=== PATIENT | female | born 1950 | race Caucasian/White ===

== ENCOUNTER 2019-03-01 18:47 | Observation (INO) | payer OTHER ==
[2019-03-01 19:09] VITALS: BMI 25.8
--- NOTE | 2019-03-01 19:14 | PDOC ---
Rapid Medical Evaluation Time Seen by Provider: 03/01/19 19:07 Medical Evaluation: Allergies Allergy/AdvReac Type Severity Reaction Status Date / Time clams Allergy Verified 03/01/19 19:09 Vital Signs Temp Pulse Resp BP Pulse Ox 98.0 F 100 H 18 200/101 H 98 03/01/19 19:06 03/01/19 19:06 03/01/19 19:06 03/01/19 19:06 03/01/19 19:06 03/01/19 19:09 Pt c/o: left back pain radiating to LLQ x 1 week, left chest pain x 10 minutes ( sharp ), no sob, fever, hx htn, (took meds last night) Pt on brief exam: left trap tenderness, no chest tenderness, lcta, elevated BP, pulse 100 Pt ordered for: labs, cxr, ekg, urine Pt to proceed to the ED Discharge Disposition - Diagnosis Left sided abdominal pain - Referrals - Patient Instructions - Post Discharge Activity
[2019-03-01 19:52] LABS: BASO % 0.8 % (0-2.0); EOS % 2.6 % (0-4.5); HEMATOCRIT 37.7 % (32.4-45.2); HEMOGLOBIN 12.8 GM/dL (10.7-15.3); LYMPH % 44.2 % (8-40); MCH 30.3 pg (25.7-33.7); MEAN CELL VOLUME 89.1 fl (80-96); MEAN PLT VOLUME 8.2 fl (7.5-11.1); MONO % 6.6 % (3.8-10.2); NEUT % 45.8 % (42.8-82.8); PLATELET COUNT 252 K/MM3 (134-434); RBC 4.23 M/mm3 (3.60-5.2); RDW 12.9 % (11.6-15.6); WHITE BLOOD COUNT 7.1 K/mm3 (4.0-10.0)
[2019-03-01 20:08] LABS: ALBUMIN 4.2 g/dl (3.4-5.0); ALK PHOS 116 U/L (45-117); ANION GAP 7 MMOL/L (8-16); BILIRUBIN,TOTAL 0.4 mg/dL (0.2-1); BLOOD UREA NITROGEN 22 mg/dL (7-18); CALCIUM 8.7 mg/dL (8.5-10.1); CHLORIDE 106 mmol/L (98-107); CO2 29 mmol/L (21-32); CREATININE 1.2 mg/dL (0.55-1.3); GLUCOSE,RANDOM 131 mg/dL (74-106); POTASSIUM 4.4 mmol/L (3.5-5.1); SGOT/AST 22 U/L (15-37); SGPT/ALT 21 U/L (13-61); SODIUM 142 mmol/L (136-145); TOT PROT 7.8 g/dl (6.4-8.2)
--- NOTE | 2019-03-01 20:21 | PDOC ---
History of Present Illness - General Chief Complaint: Chest Pain Stated Complaint: BACK PAIN, CHEST PAIN Time Seen by Provider: 03/01/19 19:07 - History of Present Illness Initial Comments: 03/01/19 21:59 66 year old female, with a significant past medical history of asthma and HTN, who presents to the emergency department with lower back pain radiating to the lower abdomen for the past week. Denies fever, dysuria, nausea, vomiting. Last checked her bp and saw her doctor 3 weeks ago where he bp was normal. Pain is relief when she slouches over. Past History - Past Medical History Allergies/Adverse Reactions: Allergies Allergy/AdvReac Type Severity Reaction Status Date / Time clams Allergy Verified 03/01/19 19:09 Home Medications: Ambulatory Orders Losartan Potassium [Cozaar] 100 mg PO DAILY 10/29/16 Asthma: Yes COPD: No HTN: Yes - Surgical History Abdominal Surgery: Yes (TUBAL LIGATION) - Suicide/Smoking/Psychosocial Hx Smoking History: Never smoked Hx Alcohol Use: No Drug/Substance Use Hx: No Review of Systems - Review of Systems Able to Perform ROS?: Yes Is the patient limited Slovak proficient: No Constitutional: No: Symptoms Reported HEENTM: No: Symptoms Reported Respiratory: No: Symptoms reported Cardiac (ROS): No: Symptoms Reported ABD/GI: Yes: See HPI : No: See HPI Musculoskeletal: No: Symptoms Reported Integumentary: No: Symptoms Reported Neurological: No: Symptoms reported All Other Systems: Reviewed and Negative *Physical Exam - Vital Signs Last Vital Signs Temp Pulse Resp BP Pulse Ox 98.0 F 100 H 18 200/101 H 98 03/01/19 19:06 03/01/19 19:06 03/01/19 19:06 03/01/19 19:06 03/01/19 19:06 - Physical Exam General Appearance: Yes: Nourished, Appropriately Dressed. No: Apparent Distress HEENT: positive: EOMI, Normal ENT Inspection Respiratory/Chest: positive: Lungs Clear, Normal Breath Sounds. negative: Chest Tender, Respiratory Distress Cardiovascular: positive: Regular Rhythm, S1, S2, Tachycardia Gastrointestinal/Abdominal: positive: Normal Bowel Sounds, Soft. negative: Tender Musculoskeletal: positive: Normal Inspection. negative: CVA Tenderness, Vertebral Tenderness Extremity: positive: Other (negative leg raise) Integumentary: positive: Normal Color, Dry, Warm Neurologic: positive: Fully Oriented, Alert, Normal Mood/Affect Heart Score/ECG Review - History History: Moderately suspicious - Electrocardiogram EKG: Normal - Age Age: >/= 65 - Risk Factors Risk Factors Heart Score: Yes Hx Hypertension, Yes Positive family hx of cardiac disease Based on the list above the patient has:: 1-2 risk factors - Troponin Troponin: </= normal limit - Score Heart Score - Total: 4 ED Treatment Course - LABORATORY CBC & Chemistry Diagram: 03/01/19 19:16 03/01/19 19:16 - ADDITIONAL ORDERS Additional order review: Laboratory Results 03/01/19 19:16 Sodium 142 Potassium 4.4 Chloride 106 Carbon Dioxide 29 Anion Gap 7 L BUN 22 H Creatinine 1.2 Creat Clearance w eGFR 44.54 Random Glucose 131 H Calcium 8.7 Total Bilirubin 0.4 AST 22 ALT 21 Alkaline Phosphatase 116 Creatine Kinase 232 H Troponin I < 0.02 Total Protein 7.8 Albumin 4.2 Medical Decision Making - Medical Decision Making 03/01/19 22:25 Dissection vs kidney stones vs acs vs msk pain Will r/o aortic etiology with CTA, check basic labs, EKG, UA for uti/renal colic although unlikely due to location of pain. UA negative for blood or infection. Patient has a heart score of 4, will have to tele obs at least and work on lowering bp with home med first. Patient admitted to tele obs 03/01/19 23:54 *DC/Admit/Observation/Transfer Diagnosis at time of Disposition: Left sided abdominal pain - Discharge Dispostion Decision to Admit order: Yes - Referrals - Patient Instructions - Post Discharge Activity
[2019-03-01] MEDS ORDERED: LOSARTAN POTASSIUM 50 MG TABLET (FP) PO ONE (21:10)
--- NOTE | 2019-03-01 21:21 | PDOC ---
Attending Attestation - HPI HPI: 03/01/19 22:14 The patient is a 68 year old female, with a significant PMH of HTN, who presents to the emergency department for evaluation of one week of worsening low back pain that radiates to the periumbilical region of the abdomen. Patient also notes 2 episodes of a pinching feeling below left breast, one earlier today and another upon speaking to the patient. Patient also reports tingling in bilateral lower extremity. Patient experiences pain exacerbation when lying down. The patient shortness of breath, headache and dizziness. Denies fever, chills, nausea, vomit, diarrhea and constipation. Denies dysuria, frequency, urgency and hematuria. Allergies: NKA Family history: uncle had heart disease and passed of [place], another family passed of an [place] Social history: None reported PCP: Michael <Carlene Fuentes - Last Filed: 03/01/19 22:14> - Resident Resident Name: Dong Llamas - ED Attending Attestation I have performed the following: I have examined & evaluated the patient, The case was reviewed & discussed with the resident, I agree w/resident's findings & plan, Exceptions are as noted - HPI HPI: 03/01/19 23:54 - Physicial Exam PE: 03/01/19 21:16 awake alert lungs clear bilaterally heart rrr no mrg abd soft nt nd. ext wwp no edema. 2 + symmetric pulses bilat ext. skin warm and dry. nuero alert oriented x 3. no mildline spinal tenderness. paraspinal lumbosacral ttp. lower ext 5/5 bilaterally sensation intact. - Medical Decision Making 03/01/19 21:19 68 yo F with h/o htn here with c/o low back pain , and intermittent pinching left sided chest pain. differential aortic pathology/ dissection. acs, msk strain back. uti, unlikley renal colic as pain is midline. plan pain control cta , labs ekg trop aspirin following cta if negative. <Taina Murguia - Last Filed: 03/01/19 23:55> Heart Score/ECG Review - History History: Moderately suspicious - Electrocardiogram EKG: Normal - Age Age: >/= 65 - Risk Factors Risk Factors Heart Score: Yes Hx Hypertension, Yes Positive family hx of cardiac disease Based on the list above the patient has:: >/=3 risk factors or Hx atherosclerotic disease - Troponin Troponin: </= normal limit - Score Heart Score - Total: 5 #1 General ECG Interpretation: Sinus Rhythm, Normal Rate (99), Normal Intervals, No acute ischemic changes <Taina Murguia - Last Filed: 03/01/19 23:55> Attestations - Attestations 03/01/19 22:14 Documentation prepared by Carlene Fuentes, acting as outside medical sales representative for Taina Murguia MD. <Carlene Fuentes - Last Filed: 03/01/19 22:14>
[2019-03-01] MEDS ORDERED: LOSARTAN POTASSIUM 50 MG TABLET (FP) ONE (22:00)
--- NOTE | 2019-03-01 22:51 | PN ---
Teaching Attending Note Name of Resident: Ranjan Meade ATTENDING PHYSICIAN STATEMENT I saw and evaluated the patient. I reviewed the resident's note and discussed the case with the resident. I agree with the resident's findings and plan as documented. SUBJECTIVE: Patient is a 68 year old woman with PMH of HTN and asthma who presents to the ER for evaluation of one week of worsening low back pain that radiates to the periumbilical region of the abdomen. Patient also notes 2 episodes of a pinching feeling below left breast, one earlier today and another upon speaking to the patient. Patient also reports tingling in bilateral lower extremity. Patient experiences pain exacerbation when lying down. She had shortness of breath, headache and dizziness. Denies fever, chills, nausea, vomit , change in bowel habit, dysuria, frequency, urgency or hematuria. OBJECTIVE: Alert Vital Signs Period Temp Pulse Resp BP Sys/Cueto Pulse Ox Last 24 Hr 98.0 F 82-100 17-18 200-206/97-101 98-100 HEENT: No Jaundice, eye redness or discharge, PERRLA, EOMI. Normocephalic, atraumatic. External ears are normal and hearing is grossly intact. No nasal discharge. Neck: Supple, nontender. No palpable adenopathy or thyromegaly. No JVD Chest: Good effort. Clear to auscultation and percussion. Heart: Regular. No S3, rub or murmur Abdomen: Not distended, soft, nontender and no HSM. No rebound or guarding. Normal bowel sounds. Ext: Peripheral pulses intact. No leg edema. Skin: Warm and dry. No petechiae, rash or ecchymosis. Neuro: Alert. Oriented x3. CN 2-12 grossly intact. Sensation grossly intact in all four extremities and DTR are symmetric. Psych: Appropriate mood and affect. Good insight. Home Medications Medication Instructions Recorded Losartan Potassium [Cozaar] 100 mg PO DAILY 10/29/16 Abnormal Lab Results 03/01/19 03/01/19 19:16 19:16 Lymphocytes % 44.2 H D Anion Gap 7 L BUN 22 H Random Glucose 131 H Creatine Kinase 232 H ASSESSMENT AND PLAN: 1. Hypertensive urgency, chest and abdominal pain - Etiology of her pain is unclear. May be related to uncontrolled hypertension. CTA of chest, abd/pelvis showed gallstones and hepatomegaly - no PE or aortic dissection. No acute abnormality on CXR. EKG is NSR with no ST-T wave changes and initial troponin is negative. Will admit to telemetry to rule out ACS. Get ECHO, fasting lipids and HbA1c. Encourage oral hydration and trend CPK. Will give IV lopressor 5 mg because her SBP is still >190 after Cozaar was give in the ER. Will add amlodipine 5 mg bid and HCTZ 12.5 mg q am. Nonpharmacologic measures to control hypertension like weight loss, salt restriction and exercise discussed. 2. DVT prophylaxis - Lovenox 40 mg SQ q 24 hours. 3. Advance directives - Full code
[2019-03-01] MEDS ORDERED: METOPROLOL TARTRATE 5 MG/5 ML VIAL IVPUSH ONE (23:36)
--- NOTE | 2019-03-01 23:40 | HP ---
CHIEF COMPLAINT: chest pain, back pain PCP: HISTORY OF PRESENT ILLNESS: Patient is a 68 y/o F w/ PMHx HTN, asthma, p/w 1 week worsening lower back pain radiating circumferentially around the abdomen, complicated by development of "pinching" pain under the left breast over the past 2-3 days that is intermittent, non-radiating, a/w nausea, diaphoresis, and SOB. On presentation patient is in hypertensive urgency w/ BP 200/101 and tachycardic to 100, labs wnl, initial troponin negative, EKG nl. Given home Losartan in ED. ER course was notable for: (1) HTN urgency 200/101 --> 188/112 after Losartan dose (2) trop neg x 1 (3) EKG nl Recent Travel: PAST MEDICAL HISTORY: As per [facility] PAST SURGICAL HISTORY: hysterectomy, breast reduction, varicose vein procedure Social History: Smoking: No Alcohol: Social Drugs: Family History: Allergies clams Allergy (Verified 03/01/19 19:09) HOME MEDICATIONS: Home Medications Medication Instructions Recorded Losartan Potassium [Cozaar] 100 mg PO DAILY 10/29/16 REVIEW OF SYSTEMS as per [facility] PHYSICAL EXAMINATION Vital Signs - 24 hr 03/01/19 03/01/19 03/01/19 19:06 22:47 23:27 Temperature 98.0 F Pulse Rate 100 H Pulse Rate [ 82 Apical] Respiratory 18 17 Rate Blood Pressure 200/101 H Blood Pressure 206/97 H 188/112 H [Left Arm] O2 Sat by Pulse 98 100 Oximetry (%) GENERAL: A&Ox3, NAD HEENT: NC/AT, PERRLA, EOMI, MMMNECK: Normal range of motion, supple without lymphadenopathy, JVD, or masses. LUNGS: Breath sounds equal, clear to auscultation bilaterally. No wheezes, and no crackles. No accessory muscle use. HEART: Regular rate and rhythm, normal S1 and S2 without murmur, rub or gallop. ABDOMEN: Soft, nontender, not distended, normoactive bowel sounds, no guarding, no rebound, no masses. No hepatomegaly or splenomegaly. MUSCULOSKELETAL: Normal range of motion at all joints. No bony deformities or tenderness. No CVA tenderness. UPPER EXTREMITIES: 2+ pulses, warm, well-perfused. No cyanosis. No clubbing. No peripheral edema. LOWER EXTREMITIES: 2+ pulses, warm, well-perfused. No calf tenderness. No peripheral edema. NEUROLOGICAL: sash repairer, motor, sensory systems w/o focal deficit PSYCHIATRIC: Cooperative. Good eye contact. Appropriate mood and affect. SKIN: Warm, dry, normal turgor, no rashes or lesions noted, normal capillary refill. Laboratory Results - last 24 hr 03/01/19 03/01/19 19:16 19:16 WBC 7.1 RBC 4.23 Hgb 12.8 Hct 37.7 MCV 89.1 MCH 30.3 MCHC 34.0 RDW 12.9 Plt Count 252 MPV 8.2 Absolute Neuts (auto) 3.3 Neutrophils % 45.8 D Lymphocytes % 44.2 H D Monocytes % 6.6 Eosinophils % 2.6 Basophils % 0.8 Nucleated RBC % 0 Sodium 142 Potassium 4.4 Chloride 106 Carbon Dioxide 29 Anion Gap 7 L BUN 22 H Creatinine 1.2 Creat Clearance w eGFR 44.54 Random Glucose 131 H Calcium 8.7 Total Bilirubin 0.4 AST 22 ALT 21 Alkaline Phosphatase 116 Creatine Kinase 232 H Creatine Kinase Index 0.9 CK-MB (CK-2) 2.1 Troponin I < 0.02 Total Protein 7.8 Albumin 4.2 ASSESSMENT/PLAN: 68 y/o F w/ PMHx HTN, asthma p/w HTN urgency, lower back pain radiating around abdomen x 1 week, left-sided CP x 2 days -CTA chest, CTA a/p negative -troponin negative x 1, will trend -EKG nl -Lopressor 5 mg IV push stat -Norvasc 5 BID -HCTZ 12.5 daily -restart home Losartan -regular diet -monitor BMP, Mg, Phos, replete as necessary -no IVF -observe on telemetry Visit type - Emergency Visit Emergency Visit: Yes Care time: The patient presented to the Emergency Department on the above date and was hospitalized for further evaluation of their emergent condition. - New Patient This patient is new to me today: Yes Date on this admission: 03/01/19 - Critical Care Critical Care patient: No
[2019-03-01 23:44] LABS: URINE APPEARANCE CLEAR; URINE BILIRUBIN NEGATIVE (NEGATIVE); URINE COLOR YELLOW; URINE GLUCOSE (UA) NEGATIVE (NEGATIVE); URINE KETONE NEGATIVE (NEGATIVE); URINE NITRITE NEGATIVE (NEGATIVE); URINE PROTEIN NEGATIVE (NEGATIVE); URINE UROBILINOGEN 0.2 mg/dL (0.2-1.0)
[2019-03-01 23:45] LABS: URINE LEUK ESTERASE NEGATIVE (NEGATIVE)
[2019-03-02] MEDS ORDERED: METOPROLOL TARTRATE 5 MG/5 ML VIAL ONE (00:04)
[2019-03-02] MEDS: amLODIPine BESYLATE 5 MG TABLET (FP) PO SCH ×2 (00:32→10:11)
[2019-03-02 04:30] LABS: CHOLESTEROL 201 mg/dL (50-200); HDL CHOLESTEROL 49 mg/dL (40-60); TRIGLYCERIDES 236 mg/dL (0-150)
[2019-03-02] MEDS ORDERED: HEPARIN NA (PORCINE) 5,000 UNITS/ML 1ML VIAL SQ SCH (06:00)
[2019-03-02 06:11] LABS: BASO % 0.6 % (0-2.0); EOS % 4.1 % (0-4.5); HEMATOCRIT 35.9 % (32.4-45.2); HEMOGLOBIN 12.2 GM/dL (10.7-15.3); MCH 30.5 pg (25.7-33.7); MEAN CELL VOLUME 89.9 fl (80-96); MEAN PLT VOLUME 8.5 fl (7.5-11.1); MONO % 6.2 % (3.8-10.2); NEUT % 36.1 % (42.8-82.8); PLATELET COUNT 238 K/MM3 (134-434); RDW 12.9 % (11.6-15.6); WHITE BLOOD COUNT 7.5 K/mm3 (4.0-10.0)
[2019-03-02] MEDS ORDERED: HEPARIN NA (PORCINE) 5,000 UNITS/ML 1ML VIAL ONE (06:21)
[2019-03-02 06:31] LABS: ANION GAP 8 MMOL/L (8-16); BLOOD UREA NITROGEN 23 mg/dL (7-18); CALCIUM 8.8 mg/dL (8.5-10.1); CHLORIDE 104 mmol/L (98-107); CO2 28 mmol/L (21-32); CREATININE 1.2 mg/dL (0.55-1.3); GLUCOSE,RANDOM 151 mg/dL (74-106); PHOSPHOROUS 3.7 mg/dL (2.5-4.9); POTASSIUM 4.6 mmol/L (3.5-5.1); SODIUM 140 mmol/L (136-145)
[2019-03-02 06:55] VITALS: TEMP 98.3
--- NOTE | 2019-03-02 08:30 | PN ---
Teaching Attending Note Name of Resident: Tina Shah ATTENDING PHYSICIAN STATEMENT I saw and evaluated the patient. I reviewed the resident's note and discussed the case with the resident. I agree with the resident's findings and plan as documented. SUBJECTIVE: Patient is feeling better with no acute distress. Wants to go home. OBJECTIVE: Vital Signs Temperature 98.3 F 03/02/19 06:54 Pulse Rate 80 03/02/19 06:54 Respiratory Rate 20 03/02/19 06:54 Blood Pressure 163/83 03/02/19 06:54 O2 Sat by Pulse Oximetry (%) 100 03/02/19 06:54 Initial Vital Signs Temp Pulse Resp BP Pulse Ox 98.0 F 100 H 18 200/101 H 98 03/01/19 19:06 03/01/19 19:06 03/01/19 19:06 03/01/19 19:06 03/01/19 19:06 Vital Signs Temperature 98.3 F 03/02/19 06:54 Pulse Rate 71 03/02/19 14:05 Respiratory Rate 18 03/02/19 14:05 Blood Pressure 151/79 03/02/19 14:05 O2 Sat by Pulse Oximetry (%) 100 03/02/19 06:54 GENERAL: The patient is awake, alert, and fully oriented, in no acute distress. HEAD: Normal with no signs of trauma. EYES: PERRL, extraocular movements intact, sclera anicteric, conjunctiva clear. ENT: Ears normal, oropharynx clear without exudates, moist mucous membranes. NECK: Trachea midline, full range of motion, supple. LUNGS: Breath sounds equal, clear to auscultation bilaterally, no wheezes, no crackles, no accessory muscle use. HEART: Regular rate and rhythm, S1, S2 without murmur, rub or gallop. ABDOMEN: Soft, nontender, nondistended, normoactive bowel sounds, no guarding, no rebound, no hepatosplenomegaly, no masses. No CVA tenderness, EXTREMITIES: 2+ pulses, warm, well-perfused, no edema. NEUROLOGICAL: Cranial nerves II through XII grossly intact. Normal speech, gait not observed. PSYCH: Normal mood, normal affect. SKIN: Warm, dry, normal turgor, no rashes or lesions noted CBCD WBC 7.5 K/mm3 (4.0-10.0) 03/02/19 05:30 RBC 4.00 M/mm3 (3.60-5.2) 03/02/19 05:30 Hgb 12.2 GM/dL (10.7-15.3) 03/02/19 05:30 Hct 35.9 % (32.4-45.2) 03/02/19 05:30 MCV 89.9 fl (80-96) 03/02/19 05:30 MCHC 34.0 g/dl (32.0-36.0) 03/02/19 05:30 RDW 12.9 % (11.6-15.6) 03/02/19 05:30 Plt Count 238 K/MM3 (134-434) 03/02/19 05:30 MPV 8.5 fl (7.5-11.1) 03/02/19 05:30 CMP Sodium 140 mmol/L (136-145) 03/02/19 05:30 Potassium 4.6 mmol/L (3.5-5.1) 03/02/19 05:30 Chloride 104 mmol/L (98-107) 03/02/19 05:30 Carbon Dioxide 28 mmol/L (21-32) 03/02/19 05:30 Anion Gap 8 MMOL/L (8-16) 03/02/19 05:30 BUN 23 mg/dL (7-18) H 03/02/19 05:30 Creatinine 1.2 mg/dL (0.55-1.3) 03/02/19 05:30 Creat Clearance w eGFR 44.54 (>60) 03/02/19 05:30 Random Glucose 151 mg/dL (74-106) H 03/02/19 05:30 Calcium 8.8 mg/dL (8.5-10.1) 03/02/19 05:30 Total Bilirubin 0.4 mg/dL (0.2-1) 03/01/19 19:16 AST 22 U/L (15-37) 03/01/19 19:16 ALT 21 U/L (13-61) 03/01/19 19:16 Alkaline Phosphatase 116 U/L (45-117) 03/01/19 19:16 Total Protein 7.8 g/dl (6.4-8.2) 03/01/19 19:16 Albumin 4.2 g/dl (3.4-5.0) 03/01/19 19:16 CARDIAC ENZYMES Creatine Kinase 56 U/L (26-192) 03/02/19 05:30 Troponin I < 0.02 ng/ml (0.00-0.05) 03/02/19 05:30 Current Medications Generic Name Dose Route Start Last Admin Trade Name [place] PRN Reason Stop Dose Admin Amlodipine Besylate 5 mg 03/01/19 23:45 03/02/19 00:32 Norvasc - PO 5 mg BID ALEK Administration Enoxaparin Sodium 40 mg 03/02/19 10:00 Lovenox - SQ DAILY [facility] Hydrochlorothiazide 12.5 mg 03/02/19 10:00 Hctz - PO DAILY [facility] Losartan Potassium 100 mg 03/02/19 10:00 Cozaar - PO DAILY [facility] Home Medications Medication Instructions Recorded Losartan Potassium [Cozaar] 100 mg PO DAILY 10/29/16 ASSESSMENT AND PLAN: Patient is a 68 y/o F w/ PMHx HTN, asthma, presented with worsening of lower back pain who was found to have an elevated BP 200/101 and tachycardic to 100, labs wnl, initial troponin negative, EKG nl. Given home Losartan in ED. # Hypertensive Urgency: will add Norvasc 5mg po bid to her regimen to Losartan, follow up with primary # Prediabetic range HgA1c; with elevated FBS: diet and lifestyle modification . # Hypertriglycidemia: Diet and lifstyle modification, as per patient is on statins at home, will continue taking it at home. #Hx of Asthma:continue home meds. patient can be discharged home.
[2019-03-02] MEDS ORDERED: HYDROCHLOROTHIAZIDE 12.5 MG CAPSULE (FP) PO SCH (10:00)
[2019-03-02] MEDS ORDERED: ENOXAPARIN NA (PORCINE) 40 MG/0.4 ML DISP.SYRIN SQ SCH (10:00)
[2019-03-02] MEDS ORDERED: LOSARTAN POTASSIUM 50 MG TABLET (FP) PO SCH (10:00)
[2019-03-02] MEDS ORDERED: ACETAMINOPHEN 325 MG TABLET (FP) PO PRN (13:06)
--- NOTE | 2019-03-02 13:35 | ECHO ---
Name: SUPRIYA DE LOS SANTOS Exam:Adult Echocardiogram Study Date: 03/02/2019 08:40 AM Age: 68 yrs Reason For Study: CHEST PAIN Height: 67 in Weight: 165 lb BSA: 1.9 m2 MMode/2D Measurements & Calculations IVSd: 0.97 cm Ao root diam: 2.7 cm LVIDd: 4.4 cm LA dimension: 3.6 cm LVIDs: 3.2 cm LVPWd: 0.89 cm EDV(Teich): 89.6 ml LVOT diam: 2.0 cm ESV(Teich): 40.6 ml Doppler Measurements & Calculations MV E max tex: 63.7 cm/sec Ao V2 max: 180.0 cm/sec MV A max tex: 91.8 cm/sec Ao max P.0 mmHg MV E/A: 0.69 Ao V2 mean: 121.0 cm/sec MV dec time: 0.17 sec Ao mean P.0 mmHg Ao V2 VTI: 40.1 cm JULISSA(I,D): 1.4 cm2 AI P1/2t: 563.1 msec JULISSA(V,D): 1.4 cm2 AI max tex: 392.7 cm/sec LV V1 max P.4 mmHg AI max P.1 mmHg LV V1 mean P.0 mmHg AI dec slope: 204.3 cm/sec2 LV V1 max: 77.3 cm/sec LV V1 mean: 56.1 cm/sec LV V1 VTI: 18.2 cm SV(LVOT): 58.1 ml TR max tex: 206.3 cm/sec TR max P.0 mmHg PI end-d tex: 136.5 cm/sec Med Peak E' Tex: 3.2 cm/sec Med E/e': 19.8 Lat Peak E' Tex: 4.1 cm/sec Lat E/e': 15.6 Procedure A complete two-dimensional transthoracic echocardiogram was performed (2D, M-mode, Doppler and color flow Doppler). Left Ventricle The left ventricular size, thickness and function are normal. The left ventricular ejection fraction is normal. Ejection Fraction = 60-65%. The left ventricular wall motion is normal. Right Ventricle The right ventricle is normal in size and function. Atria Normal left and right atrial size and function. Mitral Valve There is no mitral regurgitation noted. Tricuspid Valve There is trace tricuspid regurgitation. Right ventricular systolic pressure is normal. Aortic Valve No hemodynamically significant valvular aortic stenosis. Trace aortic regurgitation. Pulmonic Valve Trace pulmonic valvular regurgitation. Great Vessels The aortic root is normal size. Pericardium/Pleura There is no pericardial effusion. Interpretation Summary The left ventricular size, thickness and function are normal The right ventricle is normal in size and function. There is trace tricuspid regurgitation. Trace aortic regurgitation. Trace pulmonic valvular regurgitation. MD Scar Fishman 03/02/2019 01:34 PM
[2019-03-02] MEDS ORDERED: IBUPROFEN 600 MG TABLET (FP) PO ONE (14:29)
[2019-03-02] MEDS ORDERED: IBUPROFEN 400 MG TABLET (FP) PO ONE (14:37)
[2019-03-02 14:51] VITALS: BP 151/79; PULSE 71
--- NOTE | 2019-03-02 15:43 | DS ---
Physical Exam: SUBJECTIVE: Patient seen and examined at bedside this morning. Patient still reports back pain radiating around the lower abdomen and groin. but otherwise denies fever, chills , chest pain, SOB, palpitations, nausea, vomiting, diarrhea , urinary symptoms. OBJECTIVE: Vital Signs Temperature 98.3 F 03/02/19 06:54 Pulse Rate 71 03/02/19 14:05 Respiratory Rate 18 03/02/19 14:05 Blood Pressure 151/79 03/02/19 14:05 O2 Sat by Pulse Oximetry (%) 100 03/02/19 06:54 PHYSICAL EXAM GENERAL: The patient is awake, alert, and fully oriented, in no acute distress. HEAD: Normal with no signs of trauma. EYES: PERRLA, EOMI, sclera anicteric, conjunctiva clear. ENT: oropharynx clear without exudates, moist mucous membranes. NECK: Trachea midline, full range of motion, supple. LUNGS: Breath sounds equal, clear to auscultation bilaterally. HEART: Regular rate and rhythm, S1, S2 without murmur, rub or gallop. ABDOMEN: Soft, nontender, nondistended, normoactive bowel sounds. No CVA tenderness. EXTREMITIES: 2+ pulses, warm, well-perfused, no edema. BACK: No CVA tenderness, No bony deformities or tenderness. NEUROLOGICAL: Cranial nerves II through XII grossly intact. Normal speech, gait not observed. PSYCH: Normal mood, normal affect. SKIN: Warm, dry, normal turgor, no rashes or lesions noted. LABS Laboratory Results - last 24 hr 03/01/19 03/01/19 03/01/19 19:16 19:16 22:50 WBC 7.1 RBC 4.23 Hgb 12.8 Hct 37.7 MCV 89.1 MCH 30.3 MCHC 34.0 RDW 12.9 Plt Count 252 MPV 8.2 Absolute Neuts (auto) 3.3 Neutrophils % 45.8 D Lymphocytes % 44.2 H D Monocytes % 6.6 Eosinophils % 2.6 Basophils % 0.8 Nucleated RBC % 0 Sodium 142 Potassium 4.4 Chloride 106 Carbon Dioxide 29 Anion Gap 7 L BUN 22 H Creatinine 1.2 Creat Clearance w eGFR 44.54 Random Glucose 131 H Hemoglobin A1c % Calcium 8.7 Phosphorus Magnesium Total Bilirubin 0.4 AST 22 ALT 21 Alkaline Phosphatase 116 Creatine Kinase 232 H Creatine Kinase Index 0.9 CK-MB (CK-2) 2.1 Troponin I < 0.02 Total Protein 7.8 Albumin 4.2 Triglycerides Cholesterol Total LDL Cholesterol HDL Cholesterol Urine Color Yellow Urine Appearance Clear Urine pH 7.0 Ur Specific [place] 1.067 H Urine Protein Negative Urine Glucose (UA) Negative Urine Ketones Negative Urine Blood Negative Urine Nitrite Negative Urine Bilirubin Negative Urine Urobilinogen 0.2 Ur Leukocyte Esterase Negative 03/02/19 03/02/19 03/02/19 03:36 03:36 03:36 WBC RBC Hgb Hct MCV MCH MCHC RDW Plt Count MPV Absolute Neuts (auto) Neutrophils % Lymphocytes % Monocytes % Eosinophils % Basophils % Nucleated RBC % Sodium Potassium Chloride Carbon Dioxide Anion Gap BUN Creatinine Creat Clearance w eGFR Random Glucose Hemoglobin A1c % 6.0 Calcium Phosphorus Magnesium Total Bilirubin AST ALT Alkaline Phosphatase Creatine Kinase Creatine Kinase Index CK-MB (CK-2) Troponin I < 0.02 Total Protein Albumin Triglycerides 236 H Cholesterol 201 H Total LDL Cholesterol 121 H HDL Cholesterol 49 Urine Color Urine Appearance Urine pH Ur Specific [place] Urine Protein Urine Glucose (UA) Urine Ketones Urine Blood Urine Nitrite Urine Bilirubin Urine Urobilinogen Ur Leukocyte Esterase 03/02/19 03/02/19 03/02/19 05:30 05:30 05:30 WBC 7.5 RBC 4.00 Hgb 12.2 Hct 35.9 MCV 89.9 MCH 30.5 MCHC 34.0 RDW 12.9 Plt Count 238 MPV 8.5 Absolute Neuts (auto) 2.7 Neutrophils % 36.1 L D Lymphocytes % 53.0 H Monocytes % 6.2 Eosinophils % 4.1 Basophils % 0.6 Nucleated RBC % 0 Sodium 140 Potassium 4.6 Chloride 104 Carbon Dioxide 28 Anion Gap 8 BUN 23 H Creatinine 1.2 Creat Clearance w eGFR 44.54 Random Glucose 151 H Hemoglobin A1c % Calcium 8.8 Phosphorus 3.7 Magnesium 2.0 Total Bilirubin AST ALT Alkaline Phosphatase Creatine Kinase 56 Creatine Kinase Index CK-MB (CK-2) Troponin I < 0.02 Total Protein Albumin Triglycerides Cholesterol Total LDL Cholesterol HDL Cholesterol Urine Color Urine Appearance Urine pH Ur Specific [place] Urine Protein Urine Glucose (UA) Urine Ketones Urine Blood Urine Nitrite Urine Bilirubin Urine Urobilinogen Ur Leukocyte Esterase CTA of chest and abdomen: Prominent irregular atheromatous plaque with calcifications at the level of the aortic arch. There are also small calcified plaques in the rest of the abdominal aorta down through its bifurcation. There is no evidence of unusual dilatation or dissection of the thoracic and abdominal aorta through its bifurcation. No enlarged mediastinal or hilar lymph nodes are identified. Mild interstitial thickening and suggestion of mild air trapping in the lung. Hepatomegaly. Gallstones without gross wall thickening. Questionable tiny hiatus hernia. There is no evidence of SBO. Elongated appendix extending to the posterior pelvis obtaning air and debris. A few tiny colonic diverticula without evidence of acute diverticulitis. Echo: LV and RV normal in size and function. There is trace TR, AR and NM. HOSPITAL COURSE: Date of Admission:03/01/19 Date of Discharge: 03/02/19 Patient is a 68 year old female with past medical history of HTN and asthma, presented to the ED due to worsening lower back pain radiating around the lower abdomen and groin. She also reports mild intermittent chest pain and headache. AT the ED, patient was noted to have elevated blood pressure of 200/101 and was given her home dose of Losartan and HCTZ. CTA of chest and abdomen was done. EKG and Trops were unremarkable and Echo was done. Patient was also started on Amlodipine which improved her blood pressure. Patient was discharged with instructions to follow up with PCP within a week. Minutes to complete discharge: 38 Discharge Summary Reason For Visit: LEFT SIDED ABD PAIN Condition: Improved - Instructions Diet, Activity, Other Instructions: Your visit You were admitted to the hospital because you were noted to have very high blood pressure. An additional medication (Amlodipine) was given to you with the Losartan which improved your blood pressure. You will continue taking this medication. You were also reporting of back and groin pain. CAT scan of your belly and an ultrasound of your heart were done which were negative of any concerns. Medications You were started on a new medication. Please take it as prescribed. 1. Amlodipine 5 mg twice a day. Continue your other home medications. We checked your blood sugar and you are in Pre diabetic range, need to monitor blood sugar and need life style modification. Follow-up -Please follow-up with your primary care doctor (Dr. Rodriguez) within 1 week. Additional info Call 911 or go to the ED if with any worsening fever, chills, headache, dizziness, chest pain, shortness of breath, palpitations, belly pains, bloody stools. Referrals: Dana Rodriguez MD [Primary Care Provider] - 1 Week Disposition: HOME - Home Medications Comprehensive Discharge Medication List: Ambulatory Orders Losartan Potassium [Cozaar] 100 mg PO DAILY 10/29/16 Albuterol Sulfate Inhaler - [Ventolin HFA Inhaler -] 2 puff PO Q6H PRN 03/02/19 Amlodipine Besylate [Norvasc -] 5 mg PO BID #60 tablet 03/02/19 Mirtazapine 1 tab PO DAILY 03/02/19 Montelukast Sodium [Singulair] 1 tab PO DAILY 03/02/19 Pravastatin Sodium [Pravachol -] 1 tab PO HS 03/02/19 traZODone HCL [Trazodone HCl] 3 tab PO HS 03/02/19 This patient is new to me today: Yes Date on this admission: 03/02/19 Emergency Visit: Yes ED Registration Date: 03/01/19 Care time: The patient presented to the Emergency Department on the above date and was hospitalized for further evaluation of their emergent condition. Critical Care patient: No - Discharge Referral Referred to [facility] No
--- NOTE | 2019-03-02 16:37 | EKG ---
Test Reason : Blood Pressure : / mmHG Vent. Rate : 099 BPM Atrial Rate : 099 BPM P-R Int : 154 ms QRS Dur : 094 ms QT Int : 362 ms P-R-T Axes : 062 033 062 degrees QTc Int : 464 ms NORMAL SINUS RHYTHM POSSIBLE LEFT ATRIAL ENLARGEMENT BORDERLINE ECG WHEN COMPARED WITH ECG OF 29-OCT-2016 18:32, NO SIGNIFICANT CHANGE WAS FOUND Confirmed by POPPY ASENICO MD ([id number]) on 03/02/2019 4:37:20 PM Referred By: Confirmed By:POPPY ASENCIO MD
== END 2019-03-02 15:26 | disposition home or self-care (01) ==
LOC: JER 18:47 → JERBED 23:07
PROVIDERS: ADMIT Internal Medicine; ATTEND Internal Medicine
PROC: 3E033GC Introduction of Other Therapeutic Substance into Peripheral Vein, Percutaneous Approach (ICD-10-PCS; principal; 2019-03-01)
PROC: 3E013GC Introduction of Other Therapeutic Substance into Subcutaneous Tissue, Percutaneous Approach (ICD-10-PCS; 2019-03-01)
DX: I16.0 Hypertensive urgency (principal); R10.9 Unspecified abdominal pain; M54.5 Low back pain; R07.89 Other chest pain; I10 Essential (primary) hypertension; R73.03 Prediabetes; E78.1 Pure hyperglyceridemia
CPT/HCPCS: 36415; 71046-TC-FY; 71275-TC; 74174-TC; 80048; 80053; 80061; 81003; 82550; 82553; 83036; 83721; 83735; 84100; 84484; 85025; 87086; 93005; 93010; 93306-TC; 96372; 96374; 99284-25; G0378; J1644

== ENCOUNTER 2019-09-01 20:08 | Emergency (ER) | payer OTHER ==
[2019-09-01 20:26] VITALS: BP 146/80; PULSE 125; BMI 25.8
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
[2019-09-01] MEDS ORDERED: LIDOCAINE 5% TOPICAL PATCH TP ONE (21:23)
[2019-09-01] MEDS ORDERED: SODIUM CHLORIDE 0.9% 500 ML INFUS.BAG IV ONE (21:23)
[2019-09-01] MEDS ORDERED: ACETAMINOPHEN 1000 MG/100 ML VIAL (NON FORMULARY) IVPB ONE (21:23)
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
[2019-09-01] MEDS ORDERED: KETOROLAC TROMETHAMINE 15 MG/ML VIAL IVPUSH ONE (21:36)
[2019-09-01 21:47] LABS: BASO % 0.5 % (0-2.0); EOS % 1.8 % (0-4.5); HEMOGLOBIN 13.1 GM/dL (10.7-15.3); LYMPH % 52.2 % (8-40); MCH 30.2 pg (25.7-33.7); MCHC 33.6 g/dl (32.0-36.0); MEAN CELL VOLUME 89.8 fl (80-96); MEAN PLT VOLUME 8.3 fl (7.5-11.1); MONO % 6.4 % (3.8-10.2); NEUT % 39.1 % (42.8-82.8); PLATELET COUNT 302 K/MM3 (134-434); RBC 4.34 M/mm3 (3.60-5.2); RDW 13.1 % (11.6-15.6); WHITE BLOOD COUNT 6.5 K/mm3 (4.0-10.0)
[2019-09-01 21:59] LABS: INR 0.96 (0.83-1.09); PROTHROMBIN TIME (PATIENT) 11.3 SEC (9.7-13.0)
[2019-09-01] MEDS ORDERED: LIDOCAINE PATCH REMOVAL MC SCH (22:00)
[2019-09-01 22:02] LABS: ACTIVATED PTT 31.7 SECONDS (25.2-36.5)
[2019-09-01 22:06] LABS: BILIRUBIN,TOTAL 0.2 mg/dL (0.2-1); BLOOD UREA NITROGEN 32.4 mg/dL (7-18); CALCIUM 9.3 mg/dL (8.5-10.1); CREATININE 1.4 mg/dL (0.55-1.3); POTASSIUM 3.9 mmol/L (3.5-5.1)
[2019-09-01] MEDS ORDERED: ACETAMINOPHEN INJECTION 100 ML IVPB ONE (22:30)
[2019-09-01] MEDS ORDERED: KETOROLAC TROMETHAMINE 15 MG/ML VIAL ONE (22:30)
[2019-09-01] MEDS ORDERED: diazePAM 5 MG TABLET PO ONE (22:49)
[2019-09-01] MEDS ORDERED: diazePAM 5 MG TABLET ONE (23:11)
--- NOTE | 2019-09-02 14:58 | EKG ---
Test Reason : Blood Pressure : / mmHG Vent. Rate : 122 BPM Atrial Rate : 122 BPM P-R Int : 148 ms QRS Dur : 094 ms QT Int : 318 ms P-R-T Axes : 055 006 065 degrees QTc Int : 453 ms SINUS TACHYCARDIA POSSIBLE LEFT ATRIAL ENLARGEMENT INFERIOR INFARCT , AGE UNDETERMINED ABNORMAL ECG WHEN COMPARED WITH ECG OF 01-MAR-2019 18:50, INFERIOR INFARCT IS NOW PRESENT Confirmed by Chetna Haynes ([id number]) on 09/02/2019 2:58:10 PM Referred By: Confirmed By:Chetna Haynes
== END 2019-09-01 23:50 | disposition home or self-care (01) ==
LOC: JER 20:08
PROC: 3E033NZ Introduction of Analgesics, Hypnotics, Sedatives into Peripheral Vein, Percutaneous Approach (ICD-10-PCS; principal; 2019-09-01)
PROC: 3E0333Z Introduction of Anti-inflammatory into Peripheral Vein, Percutaneous Approach (ICD-10-PCS; 2019-09-01)
DX: R07.9 Chest pain, unspecified (principal); V49.49XD Driver injured in collision with other motor vehicles in traffic accident, subsequent encounter; I10 Essential (primary) hypertension; E78.5 Hyperlipidemia, unspecified; J45.909 Unspecified asthma, uncomplicated; R06.02 Shortness of breath; F41.9 Anxiety disorder, unspecified; Z91.013 Allergy to seafood
CPT/HCPCS: 36415; 71045-TC-FY; 80053; 82550; 84484; 85025; 85610; 85730; 93005; 93010; 96374; 96375; 99282-25; J0131